=== PATIENT | male | born 1945 | race Caucasian/White ===

== ENCOUNTER 2022-03-13 13:45 | Observation (INO) | payer OTHER ==
--- OUTSIDE RECORDS SUMMARY | 2022-03-13 13:47 | XMS REPORT | Continuity of Care Document ---
:1945 Author Organization [facility] t Address [address] [place] [address] [address]. [address] [place] [address] Care Team Providers Name Role Phone Tootie Anderson Attending Clinician Unavailable Tootie Anderson Admitting Clinician Unavailable Payers Payer Name Policy Type Policy Number Effective Date Expiration Date S ource Problems This patient has no known problems. Allergies, Adverse Reactions, Alerts Allergy Allergy Status Severity Reaction(s) Onset Inactive Treating Comm ents Source Name Type Date Date Clinician gluten FA Active NE NO ENERGY [facility] 02-07 [place] 00:00: [facility] No Known DA Active [facility] 02-07 [place] [facility] gluten FA Active NE NO ENERGY [facility] 02-06 [place] 00:00: [facility] gluten FA Active NE NO ENERGY [facility] 1-17 [place] 00:00: [facility]ope 00 [facility] Medications This patient has no known medications. Procedures This patient has no known procedures. Encounters Start End Encounter Admission Attending Care Care Encounter Source Date/Time Date/Time Type Type Clinicians Facility Department ID 2022-02-07 2022-02-07 Outpatient EL Justin, [facility] [id number] [facility] 12:28:00 12:28:00 Anais [id number] [place] [facility] 2022-02-07 2022-02-07 Outpatient EL Justin, [facility] [id number] [facility] 12:28:00 12:28:00 Anais 97 [place] [facility] Results Test Description Test Time Test Comments Results Result [facility] e Comments - XR FLUORO FOR 2022-02-07 SPINE INJ 17:18:00 [facility] 1945 Sex: M Patient Name: TUNG AU Unit No: [id number] EXAMS: CPT CODE: [id number] XR FLUORO FOR SPINE INJ 34074 LUMBAR EPIRADICULAR INJECTION REFERRAL PHYSICIAN: Dr. Martinez PREOPERATIVE DIAGNOSIS: Lumbar Radiculitis POSTOPERATIVE DIAGNOSIS: Lumbar radiculitis PROCEDURES PERFORMED: Fluoroscopically guided needle localization of the bilateral L4 and bilateral S1 spinal nerves with transforaminal epidurograms and epidural injection of local anesthetic and steroid. FINDINGS: Good flow of dye through the right L5 and both S1 neuroforamen. However there is severe bony osteophytic outcropping at the left L5 neuroforamen preventing proper needle placement here. A paravertebral vertebral injection was carried out unfortunately good flow of dye through the neuroforamen here was not seen. Preinjection VAS 7/10. Postinjection VAS 3/10 (low back pain remain). Steroid response pending follow-up. ESTIMATED BLOOD LOSS: Minimal ANESTHESIA: TIVA COMPLICATIONS: None DETAILS OF PROCEDURE: After obtaining stable vital signs, informed consent and IV access, with no contraindications, the patient was taken to the operating room and placed in a prone position with all extremities padded and appropriate monitors placed. The patient was sterilely prepped and draped over the lumbosacral spine. Using fluoroscopic visualization the insertion sites were marked for paravertebral approaches and using standard technique, a 22 gauge needle was advanced to the base of each pedicle without paresthesias. Isovue-300 contrast 0.2 mL of was injected incrementally with frequent negative aspirations to produce each epidurogram. There were no signs of intravascular or intrathecal uptake. Bupivicaine 0.75% 0.25 mL with lidocaine 4% 0.25 mL and Decadron 5 mg was then incrementally injected with frequent negative aspirations and again there were no signs of intravascular or intrathecal uptake. The needles were removed and the patient was taken to the PACU in good condition. Image: Image 1 Image: Image 2 Image: Image 3 at 1718 Reported and signed by: ANAIS ANDERSON MD [place] [facility] NAME: TUNG AU [address] [facility] PHYS: Anais Gamez MD [place] [address] : 1945 AGE: 76 SEX: M LOC: JustinRITIKA PHONE #: [phone] EXAM DATE: 02/07/2022 [place]: [facility] [place] #: [phone] RAD #: D/C DT PAGE 1 Signed Report (CONTINUED) Patient Name: TUNG AU Unit No: [id number] EXAMS: CPT CODE: [id number] XR FLUORO FOR SPINE INJ [id number] <Continued> CC: Anais Anderson MD Technologist: EPIFANIO DYE RT(R) Transcribed D/ (7051) [email or web address] [facility] NAME: TUNG AU [address] [facility] PHYS: Anais Gamez MD [place], [place] [address] : 1945 AGE: 76 SEX: M LOC: JustinRITIKA PHONE #: [phone] EXAM DATE: 02/07/2022 STATUS: [facility] [place] #: [phone] RAD #: D/C DT PAGE 2 Signed Report Patient Name: TUNG AU Unit No: [id number] EXAMS: CPT CODE: [id number] XR FLUORO FOR SPINE INJ [id number] <Continued> Orig Print D/T: S: 02/07/2022 (1358) [facility] NAME: TUNG AU [address] [facility] PHYS: Anais Gamez MD [place], [place] [address] : 1945 AGE: 76 SEX: M LOC: ROSMERY PHONE #: [phone] EXAM DATE: 02/07/2022 [place]US: [facility] [place] #: [phone] RAD #: D/C DT PAGE 3 Signed Report
--- NOTE | 2022-03-13 16:11 | RAD REPORT ---
EXAM DESCRIPTION: RAD - Chest Single View - 03/13/2022 3:57 pm CLINICAL HISTORY: SOB COMPARISON: No comparisons FINDINGS: Lines: None. Lungs: No evidence of edema or pneumonia. Pleural: No significant pleural effusions or pneumothorax. Cardiac: The heart size is within normal limits. Bones: No acute fractures. Sternotomy. Other: IMPRESSION: No acute cardiopulmonary disease.
[2022-03-13 16:48] LABS: Protime INR 0.92
[2022-03-13 17:05] LABS: Absolute Lymphocytes (CBC) 0.9 K/uL (0.7-4.9); Albumin 3.7 g/dL (3.4-5.0); Bilirubin Direct 0.2 mg/dL (0-0.2); Bilirubin Total 0.7 mg/dL (0.2-1.0); Hematocrit 34.8 % (39.6-49.0); Lymphocytes % 15.4 % (15.3-44.8); Magnesium 2.3 mg/dL (1.8-2.4); Potassium 3.5 mmol/L (3.5-5.1); RBC Red Blood Cell Count 4.01 M/uL (4.33-5.43); Troponin High Sensitivity 12.1 pg/mL (<58.9)
--- NOTE | 2022-03-13 18:07 | EDPHYS ---
Physician Documentation [facility] Name: Justino Cody Age: 76 yrs Sex: Male : 1945 Arrival Date: 03/13/2022 Time: 13:47 Bed 19 Private MD: ED Physician Jn Simmons HPI: 03/13 14:26 This 76 yrs old Male presents to ER via Ambulatory with complaints of Shortness Of pm1 Breath, fatigue. 14:26 The patient has shortness of breath with light activity, Walking 10 to 20 feet. Onset: pm1 The symptoms/episode began/occurred Present for 6 weeks but worse the past 3 days. Call contacted his PCP and a scheduled a stress test for June. The patient's shortness of breath is aggravated by light activity, walking, is alleviated by rest. Associated signs and symptoms: Pertinent negatives: chest pain, non-productive cough, productive cough, fever. Severity of symptoms: in the emergency department the symptoms are worse Pain is currently a 0 / 10. 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 The patient has not recently seen a physician. Historical: - Allergies: 14:08 No Known Allergies; ld1 - PMHx: 14:08 Hypertensive disorder; Hypercholesterolemia; ld1 - PSHx: 14:08 Double bypass; ld1 - Immunization history:: Adult Immunizations up to date, Client reports receiving the 2nd dose of the Covid vaccine. - Social history:: Smoking status: Patient denies any tobacco usage or history of. Patient/guardian denies using alcohol. ROS: 14:26 Constitutional: Negative for fever, chills, and weight loss. pm1 14:26 Cardiovascular: Negative for chest pain, palpitations, and edema. 14:26 Abdomen/GI: Negative for abdominal pain, nausea, vomiting, diarrhea, and constipation, Back: Negative for injury and pain, MS/Extremity: Negative for injury and deformity, Skin: Negative for injury, rash, and discoloration, Neuro: Negative for headache, weakness, numbness, tingling, and seizure. 14:26 Respiratory: Positive for shortness of breath, on exertion. 14:26 All other systems are negative. Exam: 14:26 Constitutional: This is a well developed, well nourished patient who is awake, alert, pm1 and in no acute distress. Head/Face: Normocephalic, atraumatic. 14:26 Back: No spinal tenderness. No costovertebral tenderness. Full range of motion. Skin: Warm, dry with normal turgor. Normal color with no rashes, no lesions, and no evidence of cellulitis. MS/ Extremity: Pulses equal, no cyanosis. Neurovascular intact. Full, normal range of motion. 14:26 Cardiovascular: Exam negative for acute changes, Rate: normal, Rhythm: regular, Pulses: no pulse deficits are appreciated, Heart sounds: normal, Edema: is not appreciated. 14:26 Respiratory: Exam negative for acute changes, respiratory distress, shortness of breath, Breath sounds: are clear throughout. 14:26 Neuro: Exam negative for acute changes, Orientation: is normal, Mentation: is normal, Motor: is normal, moves all fours. Vital Signs: 14:09 BP 142 / 61; Pulse 64; Resp 18; Temp 98.6; Pulse Ox 98% on R/A; Weight 87.09 kg; Height ld1 5 ft. 7 in. (170.18 cm); Pain 0/10; 17:11 BP 147 / 63; Pulse 59; Resp 19; Pulse Ox 100% on R/A; tw2 17:50 BP 154 / 64; Pulse 52; Resp 17; Pulse Ox 100% on R/A; tw2 19:05 BP 162 / 58; Pulse 57; Resp 16; Pulse Ox 100% on R/A; tw2 19:36 BP 163 / 63; Pulse 52; Resp 18; Temp 98.6; Pulse Ox 100% on R/A; Pain 0/10; gustavo 22:03 BP 136 / 82; Pulse 63; Resp 16; Temp 98.6; Pulse Ox 100% on R/A; gustavo 14:09 Body Mass Index 30.07 (87.09 kg, 170.18 cm) ld1 MDM: 14:32 Patient medically screened. pm1 18:06 Data reviewed: vital signs. Data interpreted: Pulse oximetry: on room air is 100 %. pm1 Interpretation: normal. Counseling: I had a detailed discussion with the patient and/or guardian regarding: the historical points, exam findings, and any diagnostic results supporting the discharge/admit diagnosis, lab results, radiology results, the need for further work-up and treatment in the hospital. 06/01 14:17 Order name: Basic Metabolic Panel; Complete Time: 17:08 pm1 03/13 14:17 Order name: CBC with Diff; Complete Time: 17:08 pm1 03/13 14:17 Order name: LFT's; Complete Time: 17:08 pm1 03/13 14:17 Order name: Magnesium; Complete Time: 17:08 pm1 03/13 14:17 Order name: NT PRO-BNP; Complete Time: 17:08 pm1 03/13 14:17 Order name: PT-INR; Complete Time: 16:56 pm1 03/13 14:17 Order name: Troponin HS; Complete Time: 17:08 pm1 03/13 14:17 Order name: XRAY Chest (1 view); Complete Time: 16:20 pm1 03/13 14:17 Order name: EKG; Complete Time: 14:18 pm1 03/13 14:17 Order name: Cardiac monitoring; Complete Time: 16:56 pm1 03/13 14:17 Order name: EKG - Nurse/Tech; Complete Time: 17:09 pm1 03/13 14:17 Order name: IV Saline Lock; Complete Time: 16:57 pm1 03/13 20:14 Order name: COVID-19 SARS RT PCR (Document "Date of Onset" if Symptomatic) gustavo 03/13 21:28 Order name: SARS-COV-2 RT PCR; Complete Time: 21:31 EDMS 03/13 14:17 Order name: Labs collected and sent; Complete Time: 16:57 pm1 03/13 14:17 Order name: O2 Per Protocol; Complete Time: 16:56 pm1 03/13 14:17 Order name: O2 Sat Monitoring; Complete Time: 16:57 pm1 Administered Medications: No medications were administered Disposition: 18:51 Co-signature as Attending Physician, Jn Simmons MD I agree with the assessment and kdr plan of care. Disposition Summary: 03/13/22 18:07 Hospitalization Ordered Hospitalization Status: Observation pm1 Provider: Neela Chan pm1 Location: Telemetry/MedSurg (observation) pm1 Condition: Stable pm1 Problem: new pm1 Symptoms: have improved pm1 Bed/Room Type: Standard pm1 Room Assignment: 412(03/13/22 21:32) cg Diagnosis - Shortness of breath pm1 Forms: - Medication Reconciliation Form pm1 - SBAR form pm1 Signatures: Dispatcher [employer] EDMS Jn Simmons MD MD kdr Garcia, Cindy, RN RN cg Keorn Norris NP ARBOREAL SCIENTIST pm1 Susan Zamora RN RN ld1 Corrections: (The following items were deleted from the chart) 21:32 18:07 pm1 cg
--- NOTE | 2022-03-13 18:07 | ER ---
Nurse's Notes [facility] Name: Justino Cody Age: 76 yrs Sex: Male : 1945 Arrival Date: 03/13/2022 Time: 13:47 Bed 19 Private MD: Diagnosis: Shortness of breath Presentation: 03/13 14:09 Chief complaint: Patient states: SOB/Fatigue over the past two months. Upon arrival to 1 ER SpO2 97% RA. Coronavirus screen: At this time, the client does not indicate any symptoms associated with coronavirus-19. Ebola Screen: No symptoms or risks identified at this time. Initial Sepsis Screen: Does the patient meet any 2 criteria? No. Patient's initial sepsis screen is negative. Does the patient have a suspected source of infection? No. Patient's initial sepsis screen is negative. Risk Assessment: Do you want to hurt yourself or someone else? Patient reports no desire to harm self or others. Onset of symptoms was March 13, 2022. 14:09 Method Of Arrival: Ambulatory ld1 14:09 Acuity: SABINO 3 ld1 Triage Assessment: 14:08 General: Appears in no apparent distress. comfortable, Behavior is calm, cooperative, ld1 appropriate for age. Pain: Denies pain. EENT: No signs and/or symptoms were reported regarding the EENT system. Neuro: Level of Consciousness is awake, alert, obeys commands, Oriented to person, place, time, situation. Cardiovascular: Capillary refill < 3 seconds Patient's skin is warm and dry. Respiratory: Reports shortness of breath on exertion Airway is patent Respiratory effort is even, unlabored, Onset: The symptoms/episode began/occurred gradually, the patient has mild shortness of breath. Historical: - Allergies: 14:08 No Known Allergies; ld1 - PMHx: 14:08 Hypertensive disorder; Hypercholesterolemia; ld1 - PSHx: 14:08 Double bypass; ld1 - Immunization history:: Adult Immunizations up to date, Client reports receiving the 2nd dose of the Covid vaccine. - Social history:: Smoking status: Patient denies any tobacco usage or history of. Patient/guardian denies using alcohol. Screenin:38 Abuse screen: Denies threats or abuse. Nutritional screening: No deficits noted. tw2 Tuberculosis screening: No symptoms or risk factors identified. Fall Risk None identified. Assessment: 17:09 General: Appears in no apparent distress. well groomed, Behavior is calm, cooperative, tw2 appropriate for age. Pain: Denies pain. Neuro: Level of Consciousness is awake, alert, obeys commands, Oriented to person, place, time, situation. Cardiovascular: Rhythm is regular. Respiratory: Reports shortness of breath Airway is patent Respiratory effort is even, unlabored, Respiratory pattern is. 17:13 Reassessment: provider at bedside at this time. tw2 17:50 Reassessment: Patient appears in no apparent distress at this time. No changes from tw2 previously documented assessment. Patient and/or family updated on plan of care and expected duration. Pain level reassessed. Patient is alert, oriented x 3, equal unlabored respirations, skin warm/dry/pink. 19:06 Reassessment: Patient appears in no apparent distress at this time. No changes from tw2 previously documented assessment. Patient and/or family updated on plan of care and expected duration. Pain level reassessed. Patient is alert, oriented x 3, equal unlabored respirations, skin warm/dry/pink. 19:37 Reassessment: Patient appears in no apparent distress at this time. No changes from gustavo previously documented assessment. I recv'd report on the pt in room #19. He is to be admitted. The covid swab was done and an order will be placed. The provider was informed. The pt is at 100% on RA. The pt is awaiting a bed assignment. I told him if we are unable to get a room assignment, I will get him a "hospital bed" in his room, for comfort. 19:42 Reassessment: The hospitalist is at bedside speaking with the pt. gustavo 21:38 Reassessment: I called registration and they are at bedside. The pt has been "flipped" gustavo in the system. I am currently on hold, as the pt has been assigned room 412. The SBAR has been printed and the pt will be taken up via wc. 21:40 Respiratory: Breath sounds are clear. gustavo 22:02 Reassessment: I called report to 1432, as I needed to assist a pt and could no longer gustavo "hold", when I called earlier. The nurse called me back, but I was still busy getting another pt into bed. The pt will be taken up via wc, by the tech. 22:31 Reassessment: I took the pt up to his room and he ambulated with a steady, independent gustavo gait to the bathroom and then to the bed. Vital Signs: 14:09 BP 142 / 61; Pulse 64; Resp 18; Temp 98.6; Pulse Ox 98% on R/A; Weight 87.09 kg; Height ld1 5 ft. 7 in. (170.18 cm); Pain 0/10; 17:11 BP 147 / 63; Pulse 59; Resp 19; Pulse Ox 100% on R/A; tw2 17:50 BP 154 / 64; Pulse 52; Resp 17; Pulse Ox 100% on R/A; tw2 19:05 BP 162 / 58; Pulse 57; Resp 16; Pulse Ox 100% on R/A; tw2 19:36 BP 163 / 63; Pulse 52; Resp 18; Temp 98.6; Pulse Ox 100% on R/A; Pain 0/10; gustavo 22:03 BP 136 / 82; Pulse 63; Resp 16; Temp 98.6; Pulse Ox 100% on R/A; gustavo 14:09 Body Mass Index 30.07 (87.09 kg, 170.18 cm) ld1 ED Course: 13:47 Patient arrived in ED. as 14:08 Arm band placed on right wrist. ld1 14:10 Triage completed. ld1 14:10 Keron Norris NP is PHCP. pm1 14:10 Jn Simmons MD is Attending Physician. pm1 15:59 XRAY Chest (1 view) In Process Unspecified. EDMS 16:38 She Adler RN is Primary Nurse. tw2 16:38 Call light in reach. Side rails up X 1. Adult w/ patient. Client placed on continuous tw2 cardiac and pulse oximetry monitoring. NIBP monitoring applied. compliance monitor on. Pulse ox on. 16:38 Inserted saline lock: 22 gauge in right antecubital area, using aseptic technique. tw2 Blood collected. 18:07 Neela hCan PA is Hospitalizing Provider. pm1 19:06 Report given to LYNN Brandt. tw2 19:19 Primary Nurse role handed off by She Adler RN mw2 19:36 Karly Winchester RN is Primary Nurse. gustavo 21:31 COVID-19 SARS RT PCR (Document "Date of Onset" if Symptomatic) Sent. tw5 21:39 No provider procedures requiring assistance completed. gustavo 22:01 Patient admitted, IV remains in place. gustavo Administered Medications: No medications were administered Medication: 21:39 VIS not applicable for this client. gustavo Outcome: 18:07 Decision to Hospitalize by Provider. pm1 21:39 Condition: stable gustavo 22:00 Admitted to ER Hold. Please see [facility] for further documentation. gustavo 22:34 Patient left the ED. gustavo Signatures: Dispatcher [employer] EDMS Augusta Aguero Patrick, LUCI ARCHEOLOGIST CLASSICAL pm1 She Adler RN RN tw2 Gabriel Greenwood mw2 Susan Zamora RN RN ld1 Grace Estrada tw5 Karly Winchester, RN RN gustavo
--- NOTE | 2022-03-13 19:55 | P.HP ---
Certification for Inpatient Patient admitted to: Observation With expected LOS: <2 Midnights Patient will require the following post-hospital care: None Practitioner: I am a practitioner with admitting privileges, knowledge of patient current condition, hospital course, and medical plan of care. Services: Services provided to patient in accordance with Admission requirements found in Title 42 Section 412.3 of the Code of Federal Regulations Patient History Date of Service: 03/13/22 Reason for admission: HASSAN, Fatigue History of Present Illness: Patient is a 76-year-old male past medical history of hypertension and hyperlipidemia who presented to the ED with complaints of dyspnea on exertion and fatigue for 2 months now. Patient states that he cannot walk more than 10 to 20 feet without becoming short of breath and has been feeling fatigued. He tried to make an appointment with a ticket sorter, but could not get an appointment for 3 months. Patient saturating appropriately on RA. Labs in the ED significant for creatinine 1.34, BUN 27. BNP and troponin WNL. Chest x-ray negative. EKG showed sinus bradycardia. Patient states that he had a cardiac work-up about 7 years ago which resulted in him getting a double bypass. He has not had a echo or stress test since then. ED provider wishes to admit patient for observation. Allergies No Known Allergies Allergy (Unverified 03/13/22 22:24) Home medications list reviewed: Yes - Past Medical/Surgical History Diabetic: No -: Hypertension -: Hyperlipidemia -: Double Bypass Psychosocial/ Personal History: Patient lives at home with his . - Family History Mother -: Diabetes Father -: Heart disease - Social History Smoking Status: Never smoker Alcohol use: No CD- Drugs: No Caffeine use: Yes Place of Residence: Home Review of Systems General: Other (Fatigue) Respiratory: SOB with Excertion Physical Examination - Physical Exam General: Alert, In no apparent distress HEENT: Atraumatic, PERRLA, EOMI, Sclerae nonicteric Neck: Supple, 2+ carotid pulse no bruit, No LAD, Without JVD or thyroid abnormality Respiratory: Clear to auscultation bilaterally, Normal air movement Cardiovascular: Regular rate/rhythm, Normal S1 S2 Gastrointestinal: Normal bowel sounds, No tenderness Musculoskeletal: No contractures, No tenderness Integumentary: No rashes, No breakdown Neurological: Normal speech, Normal strength at 5/5 x4 extr, Normal affect - Studies Laboratory Data (last 24 hrs) 03/13/22 16:35: PT 10.1, INR 0.92 03/13/22 16:35: WBC 6.1, Hgb 11.9 L, Hct 34.8 L, Plt Count 182 03/13/22 16:35: Sodium 143, Potassium 3.5, BUN 27 H, Creatinine 1.34 H, Glucose 91, Magnesium 2.3, Total Bilirubin 0.7, AST 29, ALT 40, Alkaline Phosphatase 65 Assessment and Plan - Problems (Diagnosis) (1) Dyspnea on exertion Current Visit: Yes Status: Acute (2) Fatigue Current Visit: Yes Status: Acute Qualifiers: Fatigue type: unspecified Qualified Code(s): R53.83 - Other fatigue (3) Hypertension Current Visit: Yes Status: Chronic Qualifiers: Hypertension type: primary hypertension Qualified Code(s): I10 - Essential (primary) hypertension (4) Hyperlipemia Current Visit: No Status: Chronic Qualifiers: Hyperlipidemia type: mixed hyperlipidemia Qualified Code(s): E78.2 - Mixed hyperlipidemia - Plan -Cardiology consulted and echo ordered -Continue home antihypertensives -Hydralazine PRN BP spikes -Oxygen as needed -BUN and Cr slightly increased. 1L fluid ordered. -Lovenox for VTE PPx -Full Code Discharge Plan: Home Plan to discharge in: 24 Hours - Advance Directives Does patient have a Living Will: Yes Does patient have a Durable POA for Healthcare: Yes - Code Status/Comfort Care Code Status Assessed: Yes (Full) Critical Care: No Time Spent Managing Pts Care (In Minutes): 50
[2022-03-13] MEDS ORDERED: ACETAMINOPHEN 500 MG TAB PO PRN (22:24)
[2022-03-13] MEDS ORDERED: ONDANSETRON 4 MG/2 ML VIAL IV PRN (22:24)
[2022-03-13] MEDS ORDERED: NA CHLORIDE 0.9% 1,000 ML IV SCH (22:24)
[2022-03-14 00:32] VITALS: BMI 30.3
[2022-03-14 04:02] LABS: Hematocrit 34.5 % (39.6-49.0); Lymphocytes % 15.9 % (15.3-44.8); RBC Red Blood Cell Count 3.95 M/uL (4.33-5.43)
[2022-03-14 04:20] LABS: Urine Appearance Clear (Clear); Urine Bilirubin Negative (Negative); Urine Blood Negative (Negative); Urine Color Yellow (Yellow); Urine Glucose Negative (Negative); Urine Protein Negative (Negative); Urine Specific Gravity 1.025 (1.005-1.030); Urine Urobilinogen 0.2 mg/dL (0.2-1.0); Urine pH 5.5 (5.0-7.0)
[2022-03-14 04:20] LABS: Albumin 3.3 g/dL (3.4-5.0); Bilirubin Total 0.9 mg/dL (0.2-1.0); Magnesium 2.2 mg/dL (1.8-2.4); Phosphorus 3.1 mg/dL (2.5-4.9); Potassium 3.5 mmol/L (3.5-5.1); Protein, Total 6.1 g/dL (6.4-8.2)
[2022-03-14 04:30] LABS: Thyroid Stimulating Hormone 4.9 uIU/mL (0.360-3.740)
[2022-03-14 04:36] LABS: Urine Microscopic Reflex NO UMIC
[2022-03-14] MEDS ORDERED: ENOXAPARIN 40 MG/0.4 ML SQ SCH (09:00)
--- NOTE | 2022-03-14 13:46 | EKG ---
Test Date: 2022-03-13 Test Time: 16:59:36 Instructional Design Technologist: NICOLASA MEASUREMENT RESULTS: Intervals: Rate: 54 ME: 190 QRSD: 102 QT: 452 QTc: 428 [place]: P: 58 ME: 190 QRS: 11 T: 31 INTERPRETIVE STATEMENTS: Sinus bradycardia Otherwise normal ECG Compared to ECG 12/05/1995 09:49:00 Sinus rhythm no longer present Left ventricular hypertrophy no longer present Intraventricular conduction delay no longer present Electronically Signed On 03-14-22 13:45:08 CDT by Jose F Downing
[2022-03-14 17:41] VITALS: BP 161/66; TEMP 98
[2022-03-14 20:57] VITALS: O2SAT 96
--- NOTE | 2022-03-15 07:11 | ECHO ---
HEIGHT: 5 ft 7 in WEIGHT: 193 lb 11.2 oz DATE OF STUDY: 03/14/[address]: Neela Chan 2-DIMENSIONAL: YES M.MODE: YES DOPPLER: YES COLOR FLOW: YES TDS: NO PORTABLE: YES DEFINITY: NO BUBBLE STUDY: NO DIAGNOSIS: DYSPNEA ON EXERTION CARDIAC HISTORY: CATHERIZATION: SURGERY: PROSTHETIC VALVE: PACEMAKER: MEASUREMENTS (cm) DIASTOLIC (NORMALS) SYSTOLIC (NORMALS) IVSd 0.8 (0.6-1.2) LA Diam 3.5 (1.9-4.0) LVEF 60-65% LVIDd 5.8 (3.5-5.7) LVIDs 3.1 (2.0-3.5) %FS 46% LVPWd 1.2 (0.6-1.2) Ao Diam 3.5 (2.0-3.7) 2 DIMENSIONAL ASSESSMENT: RIGHT ATRIUM: NORMAL LEFT ATRIUM: NORMAL RIGHT VENTRICLE: NORMAL LEFT VENTRICLE: NORMAL TRICUSPID VALVE: MODERATE TRICUSPID REGURGITATION MITRAL VALVE: MILD MITRAL REGURGITATION PULMONIC VALVE: MILD PULMONIC INSUFFICIENCY AORTIC VALVE: MODERATE AORTIC INSUFFICIENCY PERICARDIAL EFFUSION: NONE AORTIC ROOT: NORMAL LEFT VENTRICULAR WALL MOTION: NORMAL. DOPPLER/COLOR FLOW: SEE BELOW. COMMENTS: NORMAL LEFT VENTRCIULAR EJECTION FRACTION 60-65% WITH NORMAL WALL MOTION. MILD PULMONIC INSUFFICIENCY, MILD MITRAL REGURGITATION. MODERATE TRICUSPID REGURGITATION. MILD AORTIC STENOSIS AND MODERATE AORTIC INSUFFIECIENCY. TECHNOLOGIST: JUDITH TOPETE
--- NOTE | 2022-03-17 16:20 | CON ---
Date of Consultation: 03/14/2022 Reason For Consultation: Dyspnea on exertion and fatigue. History Of Present Illness: Mr. Cody is a 76-year-old white male, normally followed at the [facility], although has not been able to contact them and follow up with him. He has a history of hyperten rico, dyslipidemia. He has had CABG before. Apparently, over the last 2 months, he has been experie ncing unusual fatigue and unusual shortness of breath with exertion with some mild chest pain, but no nausea, vomiting, diaphoresis, PND, orthopnea, pedal edema, palpitations, or syncope. Past Medical History: As stated above. Allergies: NONE. Medications: At home are none. Review of Systems: Negative. Social History: Negative. Family History: Negative she. Physical Examination: Vital Signs: Stable, afebrile. HEENT: Negative. Neck: Supple without any bruit, lymphadenopathy, JVD, or thyromegaly. Chest: Clear to auscultation and percussion. Cardiac: Revealed a regular rhythm and rate. No murmurs, gallops, or rubs. Abdomen: Benign. Extremities: Revealed no clubbing, cyanosis, or edema. Diagnostic Data: All normal. Impression And Plan: This is a patient who has high blood pressure, dyslipidemia, coronary artery by pass graft. He is experiencing new onset congestive heart failure, symptoms, and maybe co ronary artery disease, worsening. Echocardiogram which was done revealed an ejection fraction of 60% to 65% with some moderate aortic insufficiency, mild mitral regurgitation as well as mild aortic jaky nosis. I think he needs to have an outpatient MPI done in the near future. He really should be on a spirin, low-dose beta-ritu, and statin. He can go home whenever it is okay with Dr. Ramsay. We tosha l see him in the office in the very near future. MEAGHAN/JOHN Voice ID: [id number] Report ID: [id number]
== END 2022-03-14 20:45 | disposition home or self-care (01) ==
LOC: ER 13:45 → ERHOLD 19:55 → 4TH 21:34
PROVIDERS: ADMIT Hospitalist; ATTEND Hospitalist
DX: I11.0 Hypertensive heart disease with heart failure (principal); I50.9 Heart failure, unspecified; I34.0 Nonrheumatic mitral (valve) insufficiency; I35.2 Nonrheumatic aortic (valve) stenosis with insufficiency; R53.83 Other fatigue; E78.2 Mixed hyperlipidemia; Z95.1 Presence of aortocoronary bypass graft; Z20.822 Contact with and (suspected) exposure to COVID-19; Z82.49 Family history of ischemic heart disease and other diseases of the circulatory system; Z83.3 Family history of diabetes mellitus
CPT/HCPCS: 93005; 93306; 85025 ×2; 80048; 36415; 83735 ×2; 84100; 85610; 80061; 80076; 84443; 81003; 84484; 84439; 80053; 83880; 71045; 99285; U0003; J1650; J7030 ×2; G0378 ×2

== ENCOUNTER 2023-07-20 10:26 | Inpatient (IN) | payer OTHER ==
--- OUTSIDE RECORDS SUMMARY | 2023-07-20 10:32 | XMS REPORT | Continuity of Care Document ---
:1945 Author Organization [facility] t Address [address] [place] [id number] Care Team Providers Name Role Phone Suzanna Attending Clinician Unavailable RICHARD Attending Clinician Unavailable Anais Anderson Attending Clinician Unavailable Suzanna Admitting Clinician Unavailable RICHARD Admitting Clinician Unavailable Anais Anderson Admitting Clinician Unavailable Payers Payer Name Policy Type Policy Number Effective Date Expiration Date S margret [employer] (MEDICARE [id number] 2022 REPLACEMENT PPO) 00:00:00 MEDICARE B-[place]: [id number] [employer] (MEDICARE [id number] SUPPLEMENT) [employer] (INDEMNITY) [id number] 2002 00:00:00 Problems Condition Condition Condition Status Onset Resolution Last Treating Co mments Source Name Details Category Date Date Treatment Clinician Date 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 4-28 Or thope s s 00:00: dic 00 Sports Medicin e Degenerati Degenerati Problem Active A zalea on of on of 3-10 Orthope lumbar Lumbar 00:00: dic interverte Interverte 00 Sp orts bral disc bral Disc Medi michelle e Arthropath Arthropath Problem Active A zalea y of y of 5-13 Orthope lumbar Lumbar 00:00: dic facet Facet 00 Sports joint Joint Medicin e Lumbosacra Lumbosacra Problem Active A zalea l l 5-13 Orthope spondylosi Spondylosi 00:00: di c s without s without 00 Spor ts myelopathy Myelopathy Me dicin e Lumbar Lumbar Problem Active Lucila radiculopa Radiculopa 4-13 Or thope thy thy 00:00: dic 00 Sports Medicin e Sleep Sleep Problem Active 2012-10 Lucila apnea Apnea 2- Orthope 00:00: dic 00 Sports Medicin e Rupture of Rupture of Problem Active 2012-10 A zalea tendon of Tendon of 11-14 Orth ope biceps Biceps 00:00: dic 00 Sports Medicin e Allergies, Adverse Reactions, Alerts Allergy Allergy Status Severity Reaction(s) Onset Inactive Treating Comm ents Source Name Type Date Date Clinician gluten FA Active PR NO ENERGY [facility]- [place] 00:[facility]: [facility] 00 dic [facility] No Known DA Active U [facility] Allergie 02-07 [place] [facility] 00:00: [facility] 00 dic [facility]osp[facility] gluten FA Active PR NO ENERGY [facility] 4-27 [place] 00:00: [facility] 00 dic Hospita l gluten FA Active PR NO ENERGY [facility] 1-17 [place] 00:00: [facility] 00 dic Hospita l Social History Smoking Status Start Date Stop Date Source Never Smoker [facility] Sports Medicine Medications Ordered Filled Start Stop Current Ordering Indication Dosage Frequency Signature Comments Components Source Medication Medication Date Date Medication? Clinician (SIG) Name Name hydrochloro hydrochloro 2012-10 No hydrochlor [facility]ila thiazide 25 thiazide 25 2-02 othiazide [facility] mg tablet mg tablet 00:00: 25 mg di c RX by other RX by other 00 tablet RX Beckie SMITH MD by other [place] hydrochloro hydrochloro 2012-10 No hydrochlor Lucila thiazide 25 thiazide 25 2-02 othiazide Orth[facility] mg tablet mg tablet 00:00: 25 mg di c RX by other RX by other 00 tablet RX Beckie SMITH MD by other [place] Adult Low Adult Low No 1 Q1D Adult Low [facility]ila Dose Dose Dose Orthope Aspirin 81 Aspirin 81 Aspirin 81 dic mg mg mg Sports tablet,johnathan tablet,johnathan tablet,del Medicin yed release yed release ayed e Take 1 Take 1 release tablet tablet Take 1 every day every day tablet by oral by oral every day route. route. by oral route. Aleve 220 Aleve 220 No 1capsul Q12H Aleve 220 Lucila mg capsule mg capsule e(s) mg capsule [facility] Take 1 Take 1 Take 1 dic capsule capsule capsule Sports every 12 every 12 every 12 Med icin hours by hours by hours by e oral route. oral route. oral route. furosemide furosemide No furosemide Lucila 20 mg 20 mg 20 mg [facility] tablet TAKE tablet TAKE tablet dic 1 TABLET BY 1 TABLET BY TAKE 1 Sports MOUTH EVERY MOUTH EVERY TABLET BY Medicin DAY DAY MOUTH e EVERY DAY hydroxychlo hydroxychlo No hydroxychl Lucila roquine 200 roquine 200 oroquine Orth[facility] mg tablet mg tablet 200 mg dic tablet Sports Medicin e ivermectin ivermectin No ivermectin Lucila 3 mg tablet 3 mg tablet 3 mg O rthope tablet dic Sports Medicin e omeprazole omeprazole No 1capsul Q1D omeprazole Lucila 20 mg 20 mg e(s) 20 mg Orth[facility] capsule,del capsule,del capsule,de dic ayed ayed layed Sports release release release Medici n Take 1 Take 1 Take 1 e capsule capsule capsule every day every day every day by oral by oral by oral route. route. route. potassium potassium No potassium Lucila chloride ER chloride ER chloride Orthope 10 mEq 10 mEq ER 10 mEq dic tablet,exte tablet,exte tablet,ext Sports nded nded ended Medicin release release release e TAKE 1 TAKE 1 TAKE 1 TABLET BY TABLET BY TABLET BY MOUTH EVERY MOUTH EVERY MOUTH DAY WITH DAY WITH EVERY DAY FOOD FOOD WITH FOOD simvastatin simvastatin No 1 Q1D simvastati Lucila 20 mg 20 mg n 20 mg Orth[facility] tablet Take tablet Take tablet dic 1 tablet 1 tablet Take 1 Sport s every day every day tablet Med icin by oral by oral every day e route. route. by oral route. Adult Low Adult Low No 1 Q1D Adult Low Lucila Dose Dose Dose Orthope Aspirin 81 Aspirin 81 Aspirin 81 dic mg mg mg Sports tablet,johnathan tablet,johnathan tablet,del Medicin yed release yed release ayed e Take 1 Take 1 release tablet tablet Take 1 every day every day tablet by oral by oral every day route. route. by oral route. Aleve 220 Aleve 220 No 1capsul Q12H Aleve 220 Lucila mg capsule mg capsule e(s) mg capsule [facility] Take 1 Take 1 Take 1 dic capsule capsule capsule Sports every 12 every 12 every 12 Med icin hours by hours by hours by e oral route. oral route. oral route. furosemide furosemide No furosemide Lucila 20 mg 20 mg 20 mg [facility] tablet TAKE tablet TAKE tablet dic 1 TABLET BY 1 TABLET BY TAKE 1 Sports MOUTH EVERY MOUTH EVERY TABLET BY Medicin DAY DAY MOUTH e EVERY DAY hydroxychlo hydroxychlo No hydroxychl Lucila roquine 200 roquine 200 oroquine Orthope mg tablet mg tablet 200 mg dic tablet Sports Medicin e ivermectin ivermectin No ivermectin Lucila 3 mg tablet 3 mg tablet 3 mg O rthope tablet dic Sports Medicin e omeprazole omeprazole No 1capsul Q1D omeprazole Lucila 20 mg 20 mg e(s) 20 mg Orthope capsule,del capsule,del capsule,de dic ayed ayed layed Sports release release release Medici n Take 1 Take 1 Take 1 e capsule capsule capsule every day every day every day by oral by oral by oral route. route. route. potassium potassium No potassium Lucila chloride ER chloride ER chloride Orthope 10 mEq 10 mEq ER 10 mEq dic tablet,exte tablet,exte tablet,ext Sports nded nded ended Medicin release release release e TAKE 1 TAKE 1 TAKE 1 TABLET BY TABLET BY TABLET BY MOUTH EVERY MOUTH EVERY MOUTH DAY WITH DAY WITH EVERY DAY FOOD FOOD WITH FOOD simvastatin simvastatin No 1 Q1D simvastati Lucila 20 mg 20 mg n 20 mg [facility] tablet Take tablet Take tablet dic 1 tablet 1 tablet Take 1 Sport s every day every day tablet Med icin by oral by oral every day e route. route. by oral route. Vital Signs Vital Name Observation Time Observation Value Comments Source Height 2023-02-07 00:00:00 67 [in_i] [facility] BMI (Body Mass 2023-02-07 00:00:00 29.8 kg/m2 [facility] Index) Sports Medicine Body Weight 2023-02-07 00:00:00 190 [lb_av] [facility] Height 2022-12-20 00:00:00 67 [in_i] [facility] BMI (Body Mass 2022-12-20 00:00:00 29.8 kg/m2 [facility] Index) Sports Medicine Body Weight 2022-12-20 00:00:00 190 [lb_av] [facility] Procedures Procedure Date / Time Performing Clinician Source Performed SPECT, bone 2022-12-20 00:00:00 [facility]o ped[facility] Sports Medicine Epidural Steroid 2022-02-07 00:00:00 [facility] Injection, Lumbar Sports Medicin e Transforaminal (Surg) Plan of Care Planned Activity Planned Date Details Comments Source Instructions [facility] Sports Medicine Encounters Start End Encounter Admission Attending Care Care Encounter Source Date/Time Date/Time Type Type Clinicians Facility Department ID 2023-05-16 2023-05-16 Outpatient FOG_McCann_ AOSM AOSM [id number] Lucila 00:00:00 00:00:00 Sanam [id number] Orth ope dic Sports Medicin e 2023-02-21 2023-02-21 Outpatient FOG_McCann_ AOSM AOSM [id number] Lucila 00:00:00 00:00:00 Sanam [id number] Orth ope dic Sports Medicin e 2023-02-07 2023-02-07 Jailene Duval AOSM [place] - Ortho 2022 427 Lucila 00:00:00 00:00:00 Jillian Arrieta - Or faby ENGINE WIPER: [id number] [facility], [place] [address] , Ph. [phone] 2023-01-20 2023-01-20 Outpatient FOG_McCann_ AOSM AOSM [id number] Lucila 00:00:00 00:00:00 Sanam [id number] Orth ope dic Sports Medicin e 2023-01-20 2023-01-20 Outpatient FOG_McCann_ AOSM AOSM [id number] Lucila 00:00:00 00:00:00 Sanam [id number] Orth ope dic Sports Medicin e 2023-01-05 2023-01-05 Outpatient FOG_McCann_ AOSM AOSM [id number] Lucila 00:00:00 00:00:00 Sanam [id number] Orth ope dic Sports Medicin e 2022-12-20 2022-12-20 Outpatient FOG_McCann_ AOSM AOSM [id number] Lucila 00:00:00 00:00:00 Sanam [id number] Orth ope dic Sports Medicin e 2022-12-20 2022-12-20 Susanne AOSM [place] - Ortho [id number] Lucila 00:00:00 00:00:00 Manuel Connorse Jace anglin ENGINE WIPER: [id number] FOG[facility] [place] [place] [address] , Ph. [phone] 2022-12-17 2022-12-17 Outpatient FOG_McCann_ AOSM AOSM 221 [id number]- Lucila 00:00:00 00:00:00 Sanam [id number] Orth ope dic Sports Medicin e 2022-12-16 2022-12-16 Outpatient OLS_BECK_TI AOSM AOSM 221 [id number] Lucila 00:00:00 00:00:00 EDUARD [id number] Orthop e dic Sports Medicin e 2022-07-10 2022-07-10 Outpatient FOG_McCann_ AOSM AOSM [id number] Lucila 00:00:00 00:00:00 Sanam [id number] Orth ope dic Sports Medicin e 2022-06-26 2022-06-26 Outpatient FOG_McCann_ AOSM AOSM [id number] Lucila 00:00:00 00:00:00 Sanam [id number] Orth ope dic Sports Medicin e 2022-06-25 2022-06-25 Outpatient FOG_McCann_ AOSM AOSM [id number] Lucila 00:00:00 00:00:00 Sanam [id number] Orth ope dic Sports Medicin e 2022-02-07 2022-02-07 Outpatient EL Justin, HCATO PAIN [id number] [facility] 12:28:00 12:28:00 Anais 97 [place] [facility] Results Test Description Test Time Test Comments Results Result [facility] e Comments - XR FLUORO FOR 2022-02-07 SPINE INJ 17:18[facility]00 [facility] 1945 Sex: M Patient Name: TUNG AU Unit No: [id number] EXAMS: CPT CODE: [id number] XR FLUORO FOR SPINE INJ 08531 LUMBAR EPIRADICULAR INJECTION REFERRAL PHYSICIAN: Dr. Martinez [...] Reported and signed by: ANAIS ANDERSON MD [facility] NAME: TUNG AU [address] [facility] PHYS: Anais Gamez MD [place] [address] : 1945 AGE: 76 SEX: M LOC: JustinRITIKA PHONE #: [phone] EXAM DATE: 02/07/2022 STATUS: REG SDC FAX #: [phone] RAD #: D/C DT PAGE 1 Signed Report (CONTINUED) Patient Name: TUNG AU Unit No: [id number] EXAMS: CPT CODE: [id number] XR FLUORO FOR SPINE INJ 76633 (Continued) CC: Anais Anderson MD Technologist: EPIFANIO DYE RT(R) Transcribed D/ (1718) [email or web address] [facility] NAME: TUNG AU [address] [facility] PHYS: Anais Gamez MD [place] [address] : 1945 AGE: 76 SEX: M LOC: ROSMERY PHONE #: [phone] EXAM DATE: 02/07/2022 STATUS: REG SDC FAX #: [phone] RAD #: D/C DT PAGE 2 Signed Report Patient Name: TUNG AU Unit No: [id number] EXAMS: CPT CODE: [id number] XR FLUORO FOR SPINE INJ 42512 (Continued) Orig Print D/T: S: 02/07/2022 (1721) [facility] NAME: TUNG AU [address] [facility] PHYS: Anais Gamez MD [place] [address] : 1945 AGE: 76 SEX: M LOC: JustinRITIKA PHONE #: [phone] EXAM DATE: 02/07/2022 STATUS: REG SDC FAX #: [phone] RAD #: D/C DT PAGE 3 Signed Report
[2023-07-20 11:08] LABS: Absolute Lymphocytes (CBC) 1.5 K/uL (0.7-4.9); Hematocrit 42.6 % (39.6-49.0); Lymphocytes % 12.1 % (15.3-44.8); MCV 87.3 fL (80-100); MPV 8.2 fL (7.6-11.3); Platelets 153 thou/uL (152-406); RBC Red Blood Cell Count 4.89 M/uL (4.33-5.43)
[2023-07-20 11:28] LABS: Albumin 3.8 g/dL (3.4-5.0); Bilirubin Direct 0.3 mg/dL (0-0.2); Bilirubin Total 1.3 mg/dL (0.2-1.0); Potassium 3.5 mEq/L (3.5-5.1); Protein, Total 7.3 g/dL (6.4-8.2); Troponin High Sensitivity 13.5 pg/mL (<58.9)
--- NOTE | 2023-07-20 11:43 | RAD REPORT ---
EXAM DESCRIPTION: RAD - Chest Single View - 07/20/2023 11:35 am CLINICAL HISTORY: CHEST PAIN COMPARISON: <Comparisons> FINDINGS: Lines: None. Lungs: No evidence of edema or pneumonia. Pleural: No significant pleural effusions or pneumothorax. Cardiac: The heart size is within normal limits. Mediastinum: Within normal limits. Bones: No acute fractures. Sternotomy. Other: None IMPRESSION: No acute cardiopulmonary disease.
--- NOTE | 2023-07-20 12:36 | RAD REPORT ---
EXAM DESCRIPTION: CT - Chest For Pe Angio - 07/20/2023 12:27 pm CLINICAL HISTORY: CHEST PAIN COMPARISON: No comparisons TECHNIQUE: Dynamically enhanced axial 3 mm thick images of the chest were obtained during administra tion of <100> mL Isovue 370 IV contrast. Coronal and oblique reconstruction images were generated and reviewed. Exam utilizes a protocol for optimal evaluation of pulmonary arterial tree. Maximum intensity projections 3D imaging was utilized All CT scans are performed using dose optimization technique as appropriate and may include automated exposure control or mA/KV adjustment according to patient size. FINDINGS: Chest Wall: No suspicious thyroid nodules or pathologic lymphadenopathy. Lungs: No acute abnormality. Pleura: No significant effusions or pneumothorax. Mediastinum/kelby: No pathologic lymphadenopathy. Pulmonary arteries/Aorta: No filling defect identified. Ascending thoracic aortic aneurysm measuring 4.1 cm. Heart: No significant pericardial effusion. Mild cardiomegaly. Upper abdomen: Cholelithiasis.Gallbladder wall thickening is present. Bones: No acute abnormality. IMPRESSION: Negative for pulmonary embolism. No acute findings in the chest. Ascending thoracic aort ic aneurysm which can be followed with annual chest CT. Cholelithiasis and possible acute cholecystitis.
--- NOTE | 2023-07-20 13:03 | RAD REPORT ---
EXAM DESCRIPTION: CTAbdomen Pelvis W Contrast - 07/20/2023 12:32 pm CLINICAL HISTORY: ABD PAIN COMPARISON: No comparisons TECHNIQUE: CT of the abdomen and pelvis was performed. All CT scans are performed using dose optimization technique as appropriate and may include automated exposure control or mA/KV adjustment according to patient size. FINDINGS: Lower chest: No acute abnormality. Cardiomegaly. Liver: No acute abnormality or suspicious lesions. Biliary: Cholelithiasis with gallbladder wall thickening. Stomach: No significant focal abnormality. Duodenum: No significant focal abnormality. Pancreas: No significant abnormality. Spleen: No significant abnormality. Adrenal: No suspicious lesions. Kidney/ureter: No hydronephrosis. No renal calculi. Too small to characterize and/or benign appearing renal lesions are noted. Retroperitoneum: No retroperitoneal adenopathy. Vascular: No aneurysm. Atherosclerosis. Bowel: No significant focal abnormality. Diverticulosis without diverticulitis. Peritoneum: No ascites or free air. Small fat containing inguinal hernias. Tiny fat containing umbili denver hernia. Bladder: Grossly unremarkable. Reproductive: Mild prostatomegaly. Bones: No acute fracture. Sternotomy. Other: n/a IMPRESSION: Cholelithiasis with distended gallbladder and wall thickening that could indicate acute cholecystitis in the appropriate clinical setting. Correlate with LFTs.
--- NOTE | 2023-07-20 13:59 | RAD REPORT ---
EXAM DESCRIPTION: US - Abdomen Exam Limited - 07/20/2023 1:35 pm CLINICAL HISTORY: ABD PAIN COMPARISON: Abdomen Pelvis W Contrast dated 07/20/2023 FINDINGS: The gallbladder demonstrates shadowing gallstones Borderline gallbladder wall thickening m easuring 3 mm. No pericholecystic fluid. The common bile duct is within normal limits measuring 6 mm. No sonographic Acevedo sign reported by the retail seasonal specialist. The liver demonstrates no findings of intrahepatic biliary dilatation. IMPRESSION: Cholelithiasis with borderline gallbladder wall thickening. Common bile duct within norm al limits for patient's age. A sonographic Acevedo's sign was NOT reported. Therefore, the findings re main nonspecific and acute cholecystitis is neither confirmed nor excluded.
--- NOTE | 2023-07-20 14:20 | ER ---
Nurse's Notes [facility] Name: Justino Cody Age: 77 yrs Sex: Male : 1945 Arrival Date: 07/20/2023 Time: 10:26 Bed 18 Private MD: Diagnosis: Other cholelithiasis without obstruction;Acute cholecystitis Presentation: 07/20 10:40 Chief complaint: Chief complaint: Patient states: Mid CP that radiates into R chest ll1 since yesterday. States he had a fall 07/11 which left a bad bruise on his R hip. 10:40 Coronavirus screen: Client denies travel out of the [place] in the last 14 days. At this ll1 time, the client does not indicate any symptoms associated with coronavirus-19. Ebola Screen: Patient denies travel to an Ebola-affected area in the 21 days before illness onset. Initial Sepsis Screen: Does the patient meet any 2 criteria? No. Patient's initial sepsis screen is negative. Does the patient have a suspected source of infection? No. Patient's initial sepsis screen is negative. Risk Assessment: Do you want to hurt yourself or someone else? Patient reports no desire to harm self or others. Onset of symptoms was July 19, 2023. 10:40 Method Of Arrival: Ambulatory ll1 10:40 Acuity: SABINO 3 ll1 Historical: - Allergies: 10:40 Gluten Protein; ll1 - PMHx: 10:40 Hypercholesterolemia; Hypertensive disorder; ll1 - PSHx: 10:40 Double Bypass; ll1 - Immunization history:: Adult Immunizations up to date. - Social history:: Smoking status: Patient denies any tobacco usage or history of. Screenin:05 [facility] ED Fall Risk Assessment (Adult) History of falling in the last 3 months, ph including since admission Yes- single mechanical fall (1 pt) Confusion or Disorientation No (0 pts) Intoxicated or Sedated No (0 pts) Impaired Gait No (0 pts) Mobility Assist Device Used No (0 pt) Altered Elimination No (0 pt) Score/Fall Risk Level 0 - 2 = Low Risk Oriented to surroundings, Maintained a safe environment, Provided non-skid footwear, Hourly rounding (assess needs \T\ fall precautionary measures) done. Abuse screen: Denies threats or abuse. Denies injuries from another. Nutritional screening: On. Tuberculosis screening: No symptoms or risk factors identified. Assessment: 11:08 General: Appears in no apparent distress. comfortable, Behavior is calm, cooperative, ph appropriate for age. Pain: Complains of pain in chest. Pain:. Neuro: Level of Consciousness is awake, alert, obeys commands, Oriented to person, place, time, situation. Cardiovascular: Reports chest pain, Rhythm is sinus bradycardia. Respiratory: Airway is patent Respiratory effort is even, unlabored. 16:50 Reassessment: No changes from previously documented assessment. Patient and/or family ll1 updated on plan of care and expected duration. Pain level reassessed. 16:51 Pain: Pain does not radiate. Pain began 1 day ago. ll1 Vital Signs: 10:40 BP 131 / 66; Pulse 69; Resp 18; Temp 97.6; Pulse Ox 99% ; Weight 86.18 kg; Height 5 ft. ll1 7 in. ; Pain 8/10; 11:06 BP 142 / 63; Pulse 59; Resp 18; Pulse Ox 98% on R/A; ph 12:00 BP 166 / 50; Pulse 59; Resp 18; Pulse Ox 98% on R/A; ph 13:00 BP 142 / 59; Pulse 61; Resp 18; Pulse Ox 98% on R/A; ph 14:14 BP 148 / 63; Pulse 57; Resp 18; Pulse Ox 99% on R/A; ph 16:50 BP 148 / 62; Pulse 59; Resp 17; ll1 10:40 Body Mass Index 29.76 (86.18 kg, 170.18 cm) ll1 10:40 Pain Scale: Adult ll1 Vitals: 11:06 Cardiac Rhythm Assessment Sinus dashawn. ph ED Course: 10:33 Patient arrived in ED. mr 10:34 Anahy Hodge, DOMINIQUE is PHCP. kb 10:34 Clifford Perez MD is Attending Physician. kb 10:40 Arm band placed on Patient placed in an exam room, on a stretcher. ll1 10:45 Monie Delgadillo, LYNN is Primary Nurse. ph 10:54 Triage completed. ll1 11:03 Inserted saline lock: 20 gauge in right antecubital area, using aseptic technique. ds4 Blood collected. 11:05 Patient has correct armband on for positive identification. Bed in low position. Call ph light in reach. Side rails up X2. Client placed on continuous cardiac and pulse oximetry monitoring. NIBP monitoring applied. 11:06 Patient maintains SpO2 saturation greater than 95% on room air. ph 11:37 XRAY Chest (1 view) In Process Unspecified. EDMS 12:29 CT Chest For PE Angio In Process Unspecified. EDMS 12:34 CT Abd/Pelvis - IV Contrast Only In Process Unspecified. EDMS 13:37 US Abdomen Limited In Process Unspecified. EDMS 14:19 Tiarra Ramsay MD is Hospitalizing Provider. kb 16:20 No provider procedures requiring assistance completed. Patient admitted, IV remains in ph place. 16:51 Provided Education on: n/a. ll1 Administered Medications: 15:42 Drug: Piperacillin-Tazobactam IVPB 3.375 grams IVPB once over 60 mins; (mix in NS 100 ph mL) Route: IVPB; Infused Over: 60 mins; Site: right antecubital; 16:35 Follow up: Response: No adverse reaction; IV Status: Completed infusion; IV Intake: ll1 100ml Medication: 11:05 VIS not applicable for this client. ph Intake: 16:35 IV: 100ml; Total: 100ml. ll1 Outcome: 14:19 Decision to Hospitalize by Provider. kb 16:50 Admitted to Med/surg accompanied by tech, via wheelchair, room 221, with chart, Report ll1 called to LYNN Winters 16:50 Condition: stable 16:50 Instructed on the need for admit, 17:13 Patient left the ED. Signatures: Dispatcher [employer] EDMS Anahy Hodge, [employer]-Saundra Knowles, Reg Reg Subhash Loovan ds4 Monie Delgadillo RN RN ph Jatinder Kirby RN RN ll1 Corrections: (The following items were deleted from the chart) 10:54 10:51 Chief complaint: ll1 ll1
--- NOTE | 2023-07-20 14:21 | EDPHYS ---
Physician Documentation [facility] Name: Justino Cody Age: 77 yrs Sex: Male : 1945 Arrival Date: 07/20/2023 Time: 10: Bed 18 Private MD: ED Physician Clifford Perez HPI: 07/20 14:20 This 77 yrs old Male presents to ER via Ambulatory with complaints of Chest Wall Pain, kb Rib pain. 14:20 The patient or guardian reports chest pain that is located primarily in the anterior kb chest wall, right. Onset: last night. The pain does not radiate. Associated signs and symptoms: The patient has no apparent associated signs or symptoms. The chest pain is described as aching. Duration: The patient or guardian reports a single episode, that is still ongoing. Modifying factors: The symptoms are alleviated by nothing. the symptoms are aggravated by nothing. Severity of pain: At its worst the pain was moderate in the emergency department the pain is unchanged. The patient has not experienced similar symptoms in the past. The patient has not recently seen a physician. Pt reports right lower chest pain that started last night. States he fell on 07/11 and believes the pain could be from that because he fell onto left side. Denies shortness of breath. Historical: - Allergies: 10:40 Gluten Protein; ll1 - PMHx: 10:40 Hypercholesterolemia; Hypertensive disorder; ll1 - PSHx: 10:40 Double Bypass; ll1 - Immunization history:: Adult Immunizations up to date. - Social history:: Smoking status: Patient denies any tobacco usage or history of. ROS: 11:03 Constitutional: Negative for fever, chills, and weight loss, kb 11:03 Cardiovascular: Positive for chest pain, 11:03 All other systems are negative, Exam: 11:03 Constitutional: This is a well developed, well nourished patient who is awake, alert, kb and in no acute distress. Head/Face: Normocephalic, atraumatic. ENT: Moist Mucous membranes Cardiovascular: Regular rate Respiratory: Respirations even and unlabored. No increased work of breathing. Talking in full sentences Abdomen/GI: Soft, non-tender. No distention Skin: Warm, dry with normal turgor. Normal color. MS/ Extremity: Pulses equal, no cyanosis. Neurovascular intact. Full, normal range of motion. Neuro: Awake and alert, GCS 15, oriented to person, place, time, and situation. Moves all extremities. Normal gait. 11:03 ECG was reviewed by the Attending Physician. Vital Signs: 10:40 BP 131 / 66; Pulse 69; Resp 18; Temp 97.6; Pulse Ox 99% ; Weight 86.18 kg; Height 5 ft. ll1 7 in. ; Pain 8/10; 11:06 BP 142 / 63; Pulse 59; Resp 18; Pulse Ox 98% on R/A; ph 12:00 BP 166 / 50; Pulse 59; Resp 18; Pulse Ox 98% on R/A; ph 13:00 BP 142 / 59; Pulse 61; Resp 18; Pulse Ox 98% on R/A; ph 14:14 BP 148 / 63; Pulse 57; Resp 18; Pulse Ox 99% on R/A; ph 16:50 BP 148 / 62; Pulse 59; Resp 17; ll1 10:40 Body Mass Index 29.76 (86.18 kg, 170.18 cm) ll1 10:40 Pain Scale: Adult ll1 MDM: 10:34 Patient medically screened. kb 14:17 Data reviewed: vital signs, nurses notes. Consideration of Admission/Observation kb Patient was admitted/placed on observation. Escalation of care including admission/observation considered. Management of patient was discussed with the following: Billing Control Clerk: Dr Aguero. Fara MRCP in the morning and zosyn started now. 14:21 Differential diagnosis: acute myocardial infarction, coronary artery disease chest wall kb pain, cholecystitis, Cholelithiasis. Management of patient was discussed with the following: Hospitalist: Hospitalist team, pt accepted for admission under Dr Ramsay. Counseling: I had a detailed discussion with the patient and/or guardian regarding the historical points, exam findings, and any diagnostic results supporting the discharge/admit diagnosis, lab results, radiology results, the need for further work-up and treatment in the hospital. 07/20 10:38 Order name: Basic Metabolic Panel; Complete Time: 11:28 kb 07/20 10:38 Order name: CBC with Diff; Complete Time: 11:28 kb 07/20 10:38 Order name: LFT's; Complete Time: 11:28 kb 07/20 10:38 Order name: Troponin HS; Complete Time: 11:28 kb 07/20 13:50 Order name: Lipase; Complete Time: 14:44 kb 07/20 15:06 Order name: Urinalysis w/ reflexes EDMS 07/20 15:06 Order name: Basic Metabolic Panel EDMS 07/20 15:06 Order name: Basic Metabolic Panel EDMS 07/20 15:06 Order name: Basic Metabolic Panel EDMS 07/20 15:06 Order name: Basic Metabolic Panel EDMS 07/20 15:06 Order name: Basic Metabolic Panel EDMS 07/20 15:06 Order name: Basic Metabolic Panel EDMS 07/20 15:06 Order name: CBC with Automated Diff EDMS 07/20 15:06 Order name: CBC with Automated Diff EDMS 07/20 15:06 Order name: CBC with Automated Diff EDMS 07/20 15:06 Order name: CBC with Automated Diff EDMS 07/20 15:06 Order name: CBC with Automated Diff EDMS 07/20 15:06 Order name: CBC with Automated Diff EDMS 07/20 15:06 Order name: Lipid Profile EDMS 07/20 15:06 Order name: Lipid Profile EDMS 07/20 15:06 Order name: Magnesium EDMS 07/20 15:07 Order name: Magnesium EDMS 07/20 15:07 Order name: Magnesium EDMS 07/20 15:07 Order name: Magnesium EDMS 07/20 15:07 Order name: Magnesium EDMS 07/20 15:07 Order name: Magnesium EDMS 07/20 15:07 Order name: Phosphorus EDMS 07/20 15:07 Order name: Phosphorus EDMS 07/20 15:07 Order name: Phosphorus EDMS 07/20 15:07 Order name: Phosphorus EDMS 07/20 15:07 Order name: Phosphorus EDMS 07/20 15:07 Order name: Phosphorus EDMS 07/20 10:38 Order name: XRAY Chest (1 view); Complete Time: 11:44 kb 07/20 12:08 Order name: CT Chest For PE Angio; Complete Time: 12:40 kb 07/20 12:22 Order name: CT Abd/Pelvis - IV Contrast Only; Complete Time: 13:06 kb 07/20 12:45 Order name: US Abdomen Limited; Complete Time: 14:01 kb 07/20 10:38 Order name: EKG; Complete Time: 10:38 kb 07/20 15:06 Order name: CONS Physician Consult EDMS 07/20 10:38 Order name: Cardiac monitoring; Complete Time: 11:03 kb 07/20 10:38 Order name: EKG - Nurse/Tech; Complete Time: 11:03 kb 07/20 10:38 Order name: IV Saline Lock; Complete Time: 11:03 kb 07/20 10:38 Order name: Labs collected and sent; Complete Time: 11:03 kb 07/20 10:38 Order name: O2 Per Protocol; Complete Time: 11: kb 07/20 10:38 Order name: O2 Sat Monitoring; Complete Time: 11: kb EC: Rate is 60 beats/min. Rhythm is regular. QRS [place] is Normal. [place] interval is normal at kb 170 msec. QRS interval is normal at 106 msec. QT interval is normal at 446 msec. Administered Medications: 15:42 Drug: Piperacillin-Tazobactam IVPB 3.375 grams IVPB once over 60 mins; (mix in NS 100 ph mL) Route: IVPB; Infused Over: 60 mins; Site: right antecubital; 16:35 Follow up: Response: No adverse reaction; IV Status: Completed infusion; IV Intake: ll1 100ml Disposition: 18:08 Co-signature as Attending Physician, Clifford Perez MD I reviewed the patient's care rn provided by the Advanced Practice Provider and agree with the diagnosis and treatment plan. Disposition Summary: 07/20/23 14:19 Hospitalization Ordered Notes: Hospitalization Status: Observation Provider: Tiarra Ramsay [facility] kb Condition: Stable kb Problem: new kb Symptoms: are unchanged kb Bed/Room Type: [facility] Room Assignment: 221(07/20/23 16:19) dw Diagnosis - Other cholelithiasis without obstruction kb - Acute cholecystitis kb Forms: - Medication Reconciliation Form kb - SBAR form kb - Leadership Thank You Letter kb Signatures: Dispatcher [employer] Anahy Leal, DOMINIQUE RADERP-Carrie Acosta RN Clifford Cartagena MD MD rn Hall, Patricia, RN RN ph Lewis, Lynsay, RN RN ll1 Corrections: (The following items were deleted from the chart) 16:19 14:19 kb dw
--- NOTE | 2023-07-20 14:40 | P.HP ---
Certification for Inpatient With expected LOS: >2 Midnights Patient will require the following post-hospital care: None Practitioner: I am a practitioner with admitting privileges, knowledge of patient current condition, hospital course, and medical plan of care. Services: Services provided to patient in accordance with Admission requirements found in Title 42 Section 412.3 of the Code of Federal Regulations Patient History Date of Service: 07/20/23 Reason for admission: cholecystitis History of Present Illness: Justino Cody is a 77-year-old male with past medical history of HLD, hypertension, and 2 vessel bypass eight years ago, who presents to the ED with complaints of RUQ pain. Justino reports eating a hot dog for lunch yesterday and last night experiencing extreme abdominal pain mostly to the epigastric and RUQ. He states his abdomen felt tight and uncomfortable that he couldn't sleep all night, he sat in his recliner which helped ease the pain. Initial vitals blood pressure 131/66, heart rate 69, respirations 18, temperature 97.6, pulse ox 99% on room air. Significant labs WBC 12.2, T. bili 1.3, direct bili 0.3, indirect bili 1.1, lipase 26. CT abdomen pelvis with contrast shows "cholelithiasis with borderline gallbladder wall thickening" US abdomen "The gallbladder demonstrates shadowing gallstones Borderline gallbladder wall thickening measuring 3 mm. No pericholecystic fluid. The common bile duct is within normal limits measuring 6 mm" CT chest angio "negative for pulmonary embolus, positive for ascending thoracic aortic aneurysm measuring 4.1 cm." Justino will be admitted to hospitalist service for further evaluation and treatment. Allergies No Known Allergies Allergy (Unverified 03/13/22 22:24) Home Medications: Amlodipine Besylate 1 tab PO BEDTIME 03/14/22 Ascorbic Acid [Vitamin C] 1 tab PO DAILY 03/14/22 Aspirin 1 tab PO DAILY 03/14/22 Atorvastatin Calcium [Lipitor] 0.5 tab PO BEDTIME 03/14/22 Calcium Carbonate [Calcium] 1 tab PO BEDTIME 03/14/22 Cholecalciferol (Vitamin D3) [Vitamin D3] 1 cap PO DAILY 03/14/22 Cyanocobalamin (Vitamin B-12) [Vitamin B-12] 1 cap PO BEDTIME 03/14/22 Furosemide [Lasix] 20 mg PO DAILY #30 tablet 03/14/22 Latanoprost/Pf [Latanoprost 0.005% Eye Drop] 1 drop EACH EYE BEDTIME 03/14/22 Magnesium Oxide [Magnesium] 1 tab PO DAILY 03/14/22 Multivit-Min/Folic/Vit K/Lycop [Men's Multivitamin Tablet] 1 tab PO BEDTIME 03/14/22 [place]-3 Fatty Acids [[place]-3] 1 cap PO BEDTIME 03/14/22 Omeprazole 1 tab PO BEDTIME 03/14/22 Potassium Chloride [K-Dur] 10 meq PO DAILY #30 tab.er.prt 03/14/22 Zinc 1 tab PO DAILY 03/14/22 - Past Medical/Surgical History Diabetic: No -: Hypertension -: Hyperlipidemia -: Double Bypass Psychosocial/ Personal History: Patient lives at home with his . - Family History Mother -: Diabetes Father -: Heart disease - Social History Alcohol use: No CD- Drugs: No Caffeine use: Yes Review of Systems General: Fever, Chills, Weakness, Malaise Eyes: Unremarkable ENT: Unremarkable Respiratory: Shortness of Breath Cardiovascular: Chest Pain Gastrointestinal: Nausea, Vomiting, Abdominal Pain, Distention Genitourinary: Unremarkable Musculoskeletal: Unremarkable Integumentary: Unremarkable Neurological: Unremarkable Physical Examination - Physical Exam General: Alert, In no apparent distress, Oriented x3 HEENT: Atraumatic, Normocephalic, PERRLA Neck: Supple, 2+ carotid pulse no bruit, JVD not distended Respiratory: Clear to auscultation bilaterally, Normal air movement Cardiovascular: No edema, Normal pulses, Regular rate/rhythm, Normal S1 S2 Capillary refill: <2 Seconds Gastrointestinal: Normal bowel sounds, Soft and benign, Distended Musculoskeletal: No clubbing, No swelling, No contractures Neurological: Normal gait, Normal speech, Normal strength at 5/5 x4 extr - Studies Laboratory Data (last 24 hrs) 07/20/23 07/20/23 07/20/23 10:50 10:50 10:50 WBC 12.20 H Hgb 14.5 Hct 42.6 Plt Count 153 Sodium 141 Potassium 3.5 BUN 17 Creatinine 1.05 Glucose 111 H Total Bilirubin 1.3 H AST 22 ALT 36 Alkaline Phosphatase 85 Lipase 26 Assessment and Plan - Plan Assessment and Plan Acute cholecystitis Leukocytosis likely inflammatory or infection -WBC 12.2 -continue Zosyn, given in the ED -Dr. Aguero consulted -MRCP in the AM- NPO at midnight -pain management Aortic aneurysm 4.1 cm -follow up outpatient with additional CT chest h/o HTN and HLD -continue home medications when available DNR DVT ppx: lovenox LOS 2-3 days Discharge Plan: Home Plan to discharge in: 72 Hours - Advance Directives Does patient have a Living Will: Yes Does patient have a Durable POA for Healthcare: Yes Time Spent Managing Pts Care (In Minutes): 55
[2023-07-20] MEDS ORDERED: ONDANSETRON 4 MG/2 ML VIAL IV PRN (14:58)
[2023-07-20] MEDS ORDERED: MORPHINE 2 MG/ML SYR IV PRN (15:32)
[2023-07-20] MEDS: ENOXAPARIN 40 MG/0.4 ML SQ SCH (17:35)
[2023-07-20] MEDS: NA CHLORIDE 0.9% 1,000 ML IV SCH (17:35)
[2023-07-20 17:57] VITALS: BMI 29.7
[2023-07-21] MEDS: PIPER TAZO 3.375 GM in NA CHLORIDE 0.9% 100 ML IV SCH ×3 (02:45→19:37)
[2023-07-21 03:18] LABS: Absolute Lymphocytes (CBC) 1.4 K/uL (0.7-4.9); Hematocrit 38.3 % (39.6-49.0); Lymphocytes % 17.6 % (15.3-44.8); MPV 8.2 fL (7.6-11.3); Platelets 136 thou/uL (152-406)
[2023-07-21 03:49] LABS: Phosphorus 2.7 mg/dL (2.5-4.9); Potassium 4.2 mEq/L (3.5-5.1)
[2023-07-21] MEDS: NA CHLORIDE 0.9% 1,000 ML IV SCH ×2 (05:20→17:51)
--- NOTE | 2023-07-21 09:47 | RAD REPORT ---
EXAM DESCRIPTION: MRI - Cholangiogram - 07/21/2023 9:29 am CLINICAL HISTORY: cholecystitis Abdominal pain COMPARISON: Abdomen Exam Limited dated 07/20/2023; Chest For Pe Angio dated 07/20/2023; Abdomen Pelv is W Contrast dated 07/20/2023 FINDINGS: Three-dimensional MRCP was performed using maximum intensity projection reconstruction on the same work station. No intrahepatic biliary tree dilatation is seen. The common bile duct is normal caliber without evide nce of retained stone, stricture or mass. The pancreatic duct is not pathologically dilated. Gallbladder contains stones and demonstrates distention and wall thickening. Mild fluid is seen surro unding the gallbladder neck. Limited T2 sequences through the abdomen demonstrates no bulky adenopathy, significant free fluid or abscess. IMPRESSION: No common bile duct stone or biliary tree dilatation. Findings suspicious for acute cholecystitis are present.
[2023-07-21] MEDS: ENOXAPARIN 40 MG/0.4 ML SQ SCH (10:10)
--- NOTE | 2023-07-21 10:53 | P.PN ---
Subjective Date of Service: 07/21/23 Chief Complaint: cholecystitis Subjective: No new changes, Doing well HPI 07/20: Justino Cody is a 77-year-old male with past medical history of HLD, hypertension, and 2 vessel bypass eight years ago, who presents to the ED with complaints of RUQ pain. Justino reports eating a hot dog for lunch yesterday and last night experiencing extreme abdominal pain mostly to the epigastric and RUQ. He states his abdomen felt tight and uncomfortable that he couldn't sleep all night, he sat in his recliner which helped ease the pain. Initial vitals blood pressure 131/66, heart rate 69, respirations 18, temperature 97.6, pulse ox 99% on room air. Significant labs WBC 12.2, T. bili 1.3, direct bili 0.3, indirect bili 1.1, lipase 26. CT abdomen pelvis with contrast shows "cholelithiasis with borderline gallbladder wall thickening" US abdomen "The gallbladder demonstrates shadowing gallstones Borderline gallbladder wall thickening measuring 3 mm. No pericholecystic fluid. The common bile duct is within normal limits measuring 6 mm" CT chest angio "negative for pulmonary embolus, positive for ascending thoracic aortic aneurysm measuring 4.1 cm." Justino will be admitted to hospitalist service for further evaluation and treatment. 07/21: Escobar went for the MRCP this AM. Will plan for surgery tomorrow, will need cardiac clearance prior. He contiues to c/o RUQ pain, and denies fever, chills, CP, SOB, and FISHER. Currently he is on RA and ambulating independently in his room. Review of Systems 10-point ROS is otherwise unremarkable Physical Examination - Vital Signs Temperature: 97.8 F Blood Pressure: 155/78 Pulse: 63 Respirations: 17 Pulse Ox (%): 99 - Studies Laboratory Data (last 24 hrs) 07/20/23 07/20/23 07/20/23 10:50 10:50 10:50 WBC 12.20 H Hgb 14.5 Hct 42.6 Plt Count 153 Sodium 141 Potassium 3.5 BUN 17 Creatinine 1.05 Glucose 111 H Total Bilirubin 1.3 H AST 22 ALT 36 Alkaline Phosphatase 85 Lipase 26 Assessment And Plan - Plan Physical Exam General: Alert, In no apparent distress, Oriented x3 HEENT: Atraumatic, Normocephalic, PERRLA Neck: Supple, 2+ carotid pulse no bruit, JVD not distended Respiratory: Clear to auscultation bilaterally, Normal air movement Cardiovascular: No edema, Normal pulses, Regular rate/rhythm, Normal S1 S2 Capillary refill: <2 Seconds Gastrointestinal: Normal bowel sounds, Soft and benign, Distended, tender to RUQ Musculoskeletal: No clubbing, No swelling, No contractures Neurological: Normal gait, Normal speech, Normal strength at 5/5 x4 extr Assessment and Plan Acute cholecystitis Leukocytosis likely inflammatory or infection -WBC 12.2 -continue Zosyn, given in the ED -Dr. Aguero consulted -MRCP -"Gallbladder contains stones and demonstrates distention and wall thickening. Mild fluid is seen surrounding the gallbladder neck." -pain management Aortic aneurysm 4.1 cm -follow up outpatient with additional CT chest h/o HTN and HLD -continue home medications when available DNR DVT ppx: lovenox LOS 2-3 days Discharge Plan: Home Time Spent Managing PTS Care (In Minutes): 35
--- NOTE | 2023-07-21 12:17 | EKG ---
Test Date: 2023-07-20 Test Time: 11:00:16 Objective C Developer: ÁNGELA MEASUREMENT RESULTS: Intervals: Rate: 60 OR: 170 QRSD: 106 QT: 446 QTc: 446 [place]: P: 61 OR: 170 QRS: -4 T: 27 INTERPRETIVE STATEMENTS: Normal sinus rhythm Normal ECG Compared to ECG 03/13/2022 16:59:36 Sinus bradycardia no longer present Electronically Signed On 07-21-23 12:14:56 CDT by Jose F Downing
[2023-07-21] MEDS ORDERED: MIDAZOLAM HCL 2 MG/2 ML INJ ONE (15:02)
[2023-07-21] MEDS ORDERED: LIDOCAINE 1% MPF 5 ML VIAL ONE (15:02)
[2023-07-21] MEDS ORDERED: propofoL 200 MG/20 ML VIAL IV ONE (15:02)
[2023-07-21] MEDS ORDERED: ROCURONIUM 50 MG/5 ML VIAL IV ONE (15:02)
[2023-07-21] MEDS ORDERED: ONDANSETRON 4 MG/2 ML VIAL ONE (15:02)
[2023-07-21] MEDS ORDERED: FENTANYL CITR 100 MCG/2 ML ONE (15:02)
[2023-07-21] MEDS ORDERED: NA CHLORIDE 0.9% 1,000 ML ONE (16:34)
[2023-07-21] MEDS ORDERED: HYDROCODONE/APAP 5/325 MG TAB PO PRN (16:36)
[2023-07-21] MEDS ORDERED: NEOSTIGMINE 1 MG/ML -10 ML VIAL ONE (16:37)
[2023-07-21] MEDS ORDERED: GLYCOPYRROLATE 0.2 MG/ML SYR ONE (16:38)
--- NOTE | 2023-07-21 16:38 | P.BOP ---
Preoperative diagnosis: acute cholecystitis, symptomatic cholelithiasis Postoperative diagnosis: same Primary procedure: Laparoscopic cholecystectomy Estimated blood loss: <10cc Specimen: gb Findings: acute cholecystitis, GB wall edema Anesthesia: General Complications: None Drain(s): REGINE drain Transferred to: Recovery Room Condition: Good
--- NOTE | 2023-07-21 19:06 | CON ---
Date of Consultation: 07/21/2023 Diagnoses: Acute cholecystitis, epigastric with right upper quadrant pain. History Of Present Illness: This is a case of a 77-year-old patient, who came to the ER last night, complaining of nausea, vomiting, and epigastric pain after eating some hot dogs. The pain did not im prove, and he was admitted to the hospital with acute cholecystitis on multiple imaging. LFTs were s lightly elevated, so he had an MRCP this morning. He denies any dysuria, hematuria, hematochezia, [place]. Denies any traveling out of the country. Denies any family member sick at home. Past Medical History: Hypertension, hyperlipidemia, cardiac disease. Past Surgical History: Double bypass in the heart. Social History: He does not smoke. He does drink alcohol. Medications: Reviewed including vitamin B12, Lasix, magnesium, omega-3, multivitamins, K-Dur, and zi nc. Physical Examination: General: The patient is awake and alert. HEENT: Pupils are equal and reactive. Anicteric. Neck: Supple. Chest: Clear. Heart: S1, S2. Abdomen: Soft and depressible. Epigastric with right upper quadrant pain with Acevedo sign positive and guarding in right upper quadrant. Rectal: Deferred. Extremities: Good capillary refill. Laboratory Data: Blood work shows a WBC count of 12, hemoglobin of 14, total bilirubin of 1.3 and di rect bilirubin of 0.3, alkaline phosphatase of 85. Imaging: CAT scan of the chest, thorax, abdomen, and pelvis reviewed with the patient and also inclu de cholelithiasis with gallbladder wall edema consistent with cholecystitis and the same findings on the ultrasound. MRCP done this morning shows no evidence of a stone in the common bile duct. Assessment: This is the case of a 77-year-old patient with acute cholecystitis, symptomatic cholelit hiasis, still has Acevedo sign, and right upper quadrant tenderness. We offered laparoscopic possible open cholecystectomy with benefits, alternatives, and risks including, but not limited to, infection , bleeding, damage to adjacent structures, anesthesia complication, choledocholithiasis, bile leak, p ancreatitis, myocardial infarction, and even . He also understands this may not relieve any sym ptoms. He might need more than one surgical intervention. We discussed the case with the primary do ctor since he has history of heart disease. His functional architect recently . He is in the process of getting a new functional architect, so if he is okay from a medical standpoint, then we will take him to surgery. The patient understood. AGNIESZKA/JOHN Voice ID: [id number] Report ID: [id number]
--- NOTE | 2023-07-21 20:15 | CON ---
Date of Consultation: 07/21/2023 Reason For Consultation: Preop assessment before cholecystectomy surgery. History Of Present Illness: 77-year-old male with history of coronary artery disease status post 2 v essel bypass surgery, had a stress test in my office within the past year was negative. He is active . No chest pain. He can do more than 4 METS without any symptoms. He has hypertension and dyslipid emia as well. He is completely chest pain free. Past Medical History: Coronary artery disease, hypertension, dyslipidemia. Past Surgical History: CABG. Medications: Refer reconciliation sheet for detailed list. Allergies: NO KNOWN DRUG ALLERGIES. Family History: No premature coronary artery disease or cancer. Social History: He does not smoke or drink. Does not use any drugs. Review of Systems: All systems reviewed were negative except above mentioned in HPI. Physical Examination: Vital Signs: Reviewed. Head and Neck: Pupils are equal, reactive to light. Intact eye movements. No JVD. No cervical lym phadenopathy. Neck: Supple. Thyroid is not enlarged. Lungs: Clear to auscultation bilaterally. No rhonchi, rales, or crackles. No accessory muscle use. Heart: Regular rate and rhythm. No extra sounds. Abdomen: Soft, nontender. Bowel sounds positive. No organomegaly. No masses or hernia. No rigidi ty or rebound. Extremities: No edema, clubbing, cyanosis. Intact pulses. Skin: No rashes. Neurologic: Alert, awake, oriented x3. No acute focal deficits appreciated. Investigations: Troponins negative. BUN 19, creatinine 1.0, LDL cholesterol is 40, hemoglobin 13.1. Assessment/recommendation: 1.Cardiac preoperative risk assessment as patient has history of coronary artery disease, but he is well vascularized through CABG many years back and stress test within the past year is negative. He can do more than 4 METS without any symptoms and has no active chest pain and this surgery is rather urgent to proceed without any further workup. 2.Hypertension. Blood pressure is controlled. 3.Dyslipidemia. Recommend Lipitor 40 mg q.h.s. 4.Aortic aneurysm measures 4.1 cm. We will plan for outpatient followup on this matter. /JOHN Voice ID: [id number] Report ID: [id number]
[2023-07-22] MEDS: NA CHLORIDE 0.9% 1,000 ML IV SCH (03:02)
--- NOTE | 2023-07-22 03:12 | OP ---
Date of Procedure: 07/21/2023 Surgeon: René Aguero MD Preoperative Diagnoses: Acute cholecystitis, symptomatic cholelithiasis. Postoperative Diagnoses: Acute cholecystitis, symptomatic cholelithiasis. Procedure: Laparoscopic cholecystectomy. Estimated Blood Loss: Less than 10 cc. Findings: Acute cholecystitis, gallbladder wall edema. Anesthesia: General plus local. Drains: REGINE #10. Indications: This is the case of a male who came to us with acute abdominal pain with Acevedo's sign positive, diagnosed with acute cholecystitis, symptomatic cholelithiasis. Benefits, alternatives, an d risks of laparoscopic possible open cholecystectomy fully explained, which include, but not limited to infection, bleeding, damage to adjacent structures, anesthesia complication, choledocholithiasis, bile leak, pancreatitis, LA, and . He also understands this may not relieve the symptoms. He might need more than one surgical intervention. He understood. He signed consent. Patient brought to the operating room and placed in supine position. Anesthesia was done without complication. Abdo su area was prepped and draped in sterile fashion. Marcaine 0.5% was injected for local anestheti c followed by sharp incision of skin in the infraumbilical region. Incision was carried down to fasc ia, which was opened under direct vision. Peritoneum was encountered, opened under direct vision. V icryl #1 placed inside the fascia. Rekha trocar was carefully introduced and was obtaine d. I placed 3 more trocars, 5 mm each one of them in epigastric and right upper quadrant area under direct visualization. This allowed me to visualize the area of the gallbladder that looked like it h as many adhesions of the fatty tissue to the gallbladder and the liver. They were friable. They nee d to be addressed, but we LigaSure once the trocars were placed in that area. Once we rem stephanie that, the gallbladder was so distended that we could not even hold it with a grasper, so we deco mpressed the gallbladder partially under direct visualization by introducing an Endo needle and then aspirated the gallbladder. This was done under direct visualization. Needle was removed under direc t visualization. The fundus of the gallbladder was grasped with a grasper. The same with the infund ibulum and the gallbladder was retracted in the inferolateral fashion exposing the triangle of Calot and obtaining critical view. The cystic duct and cystic artery were clearly isolated, freed circumfe rentially and connection between those and the gallbladder was clearly identified. I proceeded to li gate those by using at least 3 clips proximal, 1 clip distal, ligation in middle. Same was done with the cystic artery. No bile leak. No bleeding. The gallbladder was removed from liver using Bovie cauterizer and removed from abdominal cavity using EndoCatch through the umbilical incision. The are a was inspected once again. No bile leak. No bleeding. Due to all this inflammation and swelling o f that area, left a REGINE drain in that region exiting through one of the trocar sites and secured in pl hussain with 3-0 nylon. The area was inspected once again. The areas of adhesions were removed with no bleeding. Gallbladder fossa was intact. Clips were intact with no bile leak and no bleeding. At th at moment, I proceeded to remove the trocars under direct vision. Deflated pneumoperitoneum. Closed the fascia with #1 Vicryl. Irrigated subcutaneous tissue and closed that with 3-0 chromic and the s kin with stapled. Sponge count and instrument count correct. Patient tolerated the procedure well. Patient on his way to Recovery in stable condition. AGNIESZKA/JOHN Voice ID: [id number] Report ID: [id number]
[2023-07-22 03:38] LABS: Hematocrit 36.4 % (39.6-49.0); Lymphocytes % 13.9 % (15.3-44.8); MCV 87.2 fL (80-100); MPV 8.4 fL (7.6-11.3); Platelets 129 thou/uL (152-406); RBC Red Blood Cell Count 4.17 M/uL (4.33-5.43)
[2023-07-22 03:39] LABS: Absolute Lymphocytes (CBC) 1.1 K/uL (0.7-4.9)
[2023-07-22 03:59] LABS: Phosphorus 3.8 mg/dL (2.5-4.9); Potassium 3.7 mEq/L (3.5-5.1)
[2023-07-22] MEDS ORDERED: POTASSIUM CL SA 10 MEQ TAB PO ONE (08:00)
[2023-07-22 10:53] VITALS: BP 155/66; TEMP 97.5
--- NOTE | 2023-07-22 10:58 | P.PN ---
Subjective Date of Service: 07/22/23 Chief Complaint: cholecystitis Subjective: Tolerating diet, Ambulating, Improving Review of Systems General: Fever (no) Respiratory: Cough (no), Shortness of Breath (no) Cardiovascular: Chest Pain (no) Gastrointestinal: Nausea (no), Vomiting (no), No Distention Physical Examination - Vital Signs Temperature: 97.5 F Blood Pressure: 155/66 Pulse: 63 Respirations: 18 Pulse Ox (%): 97 - Physical Exam General: Alert, In no apparent distress, Oriented x3, Cooperative HEENT: PERRLA Neck: Supple Respiratory: Normal air movement Cardiovascular: No edema, Normal pulses Gastrointestinal: Soft and benign, Other (REGINE serosanguineous) Musculoskeletal: No erythema, No tenderness, No warmth Integumentary: No rashes, No breakdown Assessment And Plan - Plan Ok to D/H from surgical standpoint with PO abx REGINE care explained f/u my office this friday to remove REGINE drain
[2023-07-22] MEDS: PIPER TAZO 3.375 GM in NA CHLORIDE 0.9% 100 ML IV SCH (11:17)
--- NOTE | 2023-07-22 12:15 | P.DS ---
Admission Date: 07/20/23 Discharge Date: 07/22/23 Disposition: ROUTINE DISCHARGE Discharge Condition: GOOD Reason for Admission: cholecystitis Consultations: Cardiology - Dr. Downing General Surgery - Dr. Aguero Brief History of Present Illness: 77yo M, PMH: HLD, hypertension, and 2 vessel bypass eight years ago, Patient presents to the ED with complaints of RUQ pain. Justino reports eating a hot dog for lunch yesterday and last night experiencing extreme abdominal pain mostly to the epigastric and RUQ. He states his abdomen felt tight and uncomfortable that he couldn't sleep all night, he sat in his recliner which helped ease the pain. Initial vitals blood pressure 131/66, heart rate 69, respirations 18, temperature 97.6, pulse ox 99% on room air. Significant labs WBC 12.2, T. bili 1.3, direct bili 0.3, indirect bili 1.1, lipase 26. CT abdomen pelvis with contrast shows "cholelithiasis with borderline gallbladder wall thickening" US abdomen "The gallbladder demonstrates shadowing gallstones Borderline gallbladder wall thickening measuring 3 mm. No pericholecystic fluid. The common bile duct is within normal limits measuring 6 mm" CT chest angio "negative for pulmonary embolus, positive for ascending thoracic aortic aneurysm measuring 4.1 cm." Hospital Course: Problem List: Acute cholecystitis, now s/p Laparoscopic cholecystectomy (07/21) Incidental Findings: Aortic aneurysm 4.1 cm Hypertension Hyperlipidemia Patient presented with RUQ pain. Patient was found to have acute cholecystitis first seen on CT and later confirmed on MRCP. General surgery was consulted. Patient underwent successful laparoscopic cholecystectomy with Dr. Aguero on 07/21. Patient was monitored post operatively, feeling better, abdominal pain improved, was deemed stable for discharge home with REGINE drain. Incidentally seen on CTA chest: Ascending thoracic aortic aneurysm measuring 4.1 cm Recommend follow up CT in a year to monitor size. Medications: Augmentin x 7 days [place] for pain Follow up: PCP 3-[address] Aguero in 1 week REGINE drain care Physical Exam: GEN: Alert, oriented, NAD HEENT: Normal conjunctiva, sclera anicteric CV: Regular rate and rhythm, no edema Pulm: Nonlabored respirations on room air, clear bilaterally ABD: Soft, mild RUQ tenderness, REGINE drain in place, surgical dressing in place MSK: No joint tenderness Integumentary: No rashes Neuro: Normal speech, normal affect Vital Signs/Physical Exam: Temp Pulse Resp BP Pulse Ox 97.5 F 63 18 155/66 H 97 07/22/23 10:58 07/22/23 10:58 07/22/23 10:58 07/22/23 10:58 07/22/23 10:58 Laboratory Data at Discharge: WBC 8.00 thou/uL (4.3-10.9) 07/22/23 01:43 Hgb 12.4 g/dL (13.6-17.9) L 07/22/23 01:43 Hct 36.4 % (39.6-49.0) L 07/22/23 01:43 Plt Count 129 thou/uL (152-406) L 07/22/23 01:43 Sodium 141 mEq/L (136-145) 07/22/23 01:43 Potassium 3.7 mEq/L (3.5-5.1) 07/22/23 01:43 BUN 18 mg/dL (7-18) 07/22/23 01:43 Creatinine 0.99 mg/dL (0.70-1.30) 07/22/23 01:43 Glucose 83 mg/dL (74-106) 07/22/23 01:43 Phosphorus 3.8 mg/dL (2.5-4.9) 07/22/23 01:43 Magnesium 2.0 mg/dL (1.6-2.4) 07/22/23 01:43 Total Bilirubin 1.3 mg/dL (0.2-1.0) H 07/20/23 10:50 AST 22 U/L (15-37) 07/20/23 10:50 ALT 36 U/L (16-61) 07/20/23 10:50 Alkaline Phosphatase 85 U/L (45-117) 07/20/23 10:50 Triglycerides 109 mg/dL (<150) 07/21/23 02:44 Cholesterol 110 mg/dL (<200) 07/21/23 02:44 HDL Cholesterol 48 mg/dL (40-60) 07/21/23 02:44 Cholesterol/HDL Ratio 2.29 07/21/23 02:44 Lipase 26 U/L (13-75) 07/20/23 10:50 Home Medications: Amlodipine Besylate 1 tab PO BEDTIME 03/14/22 Ascorbic Acid [Vitamin C] 1 tab PO DAILY 03/14/22 Aspirin 1 tab PO DAILY 03/14/22 Atorvastatin Calcium [Lipitor] 0.5 tab PO BEDTIME 03/14/22 Calcium Carbonate [Calcium] 1 tab PO BEDTIME 03/14/22 Cholecalciferol (Vitamin D3) [Vitamin D3] 1 cap PO DAILY 03/14/22 Latanoprost/Pf [Latanoprost 0.005% Eye Drop] 1 drop EACH EYE BEDTIME 03/14/22 Magnesium Oxide [Magnesium] 1 tab PO DAILY 03/14/22 Multivit-Min/Folic/Vit K/Lycop [Men's Multivitamin Tablet] 1 tab PO BEDTIME 03/14/22 [place]-3 Fatty Acids [[place]-3] 1 cap PO BEDTIME 03/14/22 Potassium Chloride [K-Dur] 10 meq PO DAILY #30 tab.er.prt 03/14/22 Zinc 1 tab PO DAILY 03/14/22 Quercetin 1 cap PO BEDTIME 07/20/23 Amox/Clavulanate [Augmentin 875-125 Tab] 1 tab PO BID 7 Days #14 tab 07/22/23 Hydrocodone 5/APAP 325 [[place] 5/325*] 1 tab PO Q8H PRN 5 Days #15 tab 07/22/23 New Medications: Amox/Clavulanate [Augmentin 875-125 Tab] 1 tab PO BID 7 Days #14 tab Hydrocodone 5/APAP 325 [[place] 5/325*] 1 tab PO Q8H PRN 5 Days #15 tab PRN Reason: Pain Scale 5-7 (Moderate) Physician Discharge Instructions: Patient presented with RUQ pain. Patient was found to have acute cholecystitis first seen on CT and later confirmed on MRCP. General surgery was consulted. Patient underwent successful laparoscopic cholecystectomy with Dr. Aguero on 07/21. Patient was monitored post operatively, feeling better, abdominal pain improved, was deemed stable for discharge home with REGINE drain. Incidentally seen on CTA chest: Ascending thoracic aortic aneurysm measuring 4.1 cm Recommend follow up CT in a year to monitor size. Medications: Augmentin x 7 days [place] for pain Follow up: PCP 3-[address] Aguero in 1 week REGINE drain care Followup: René Aguero MD [ACTIVE - CAN ADMIT] - 07/25/23 10:00 am NONE,NONE [Primary Care Provider] - Time spent managing pt's care (in minutes): 45
[2023-07-22 15:53] VITALS: O2SAT 98
--- NOTE | 2023-07-22 15:54 | PN ---
Date of Progress Note: 07/22/2023 Subjective: Seen by bedside. Clinically doing well. Had cholecystectomy. No cardiac complications . Review of Systems: No chest pain, shortness of breath, orthopnea, or cough. No nausea, vomiting, or diarrhea. All othe r systems were reviewed, they were negative. Objective: Vital Signs: Reviewed. Head and Neck: Pupils are equal, reactive to light. Intact eye movements. No JVD. No cervical lym phadenopathy. Neck is supple. Thyroid is not enlarged. Lungs: Clear to auscultation bilaterally. No rhonchi, wheezing, or crackles. No accessory muscle u se. Heart: Regular rate and rhythm. No extra sounds. Abdomen: Soft, nontender. Bowel sounds positive. No organomegaly. No masses or hernia. No rigidi ty or rebound. Extremities: No clubbing or cyanosis. Intact pulses. Skin: No rashes. No nodule. Neurologic: Alert, awake, oriented x3. No acute focal deficits appreciated. Investigations: BUN 18, creatinine 0.99. Assessment And Recommendations: Coronary artery disease, stable. No active symptoms. Tolerated cho lecystectomy without complications. Cardiology will sign off on the case. I will be available for a ny further questions. Thank you for the consult. /JOHN Voice ID: [id number] Report ID: [id number]
[2023-07-22] MEDS ORDERED: PIPER TAZO 3.375 GM in NA CHLORIDE 0.9% 100 ML IV SCH (17:00)
== END 2023-07-22 14:55 | disposition home or self-care (01) | DRG 419 ==
LOC: ER 10:26 → ERHOLD 14:59 → 2ND 17:01
PROVIDERS: ADMIT Internal Medicine; ATTEND Hospitalist
PROC: 0FT44ZZ Resection of Gallbladder, Percutaneous Endoscopic Approach (ICD-10-PCS; principal; 2023-07-21 15:45)
DX: K80.00 Calculus of gallbladder with acute cholecystitis without obstruction (principal); I10 Essential (primary) hypertension; I71.9 Aortic aneurysm of unspecified site, without rupture; E78.00 Pure hypercholesterolemia, unspecified; I25.10 Atherosclerotic heart disease of native coronary artery without angina pectoris; Z66 Do not resuscitate; Z95.1 Presence of aortocoronary bypass graft; Z88.8 Allergy status to other drugs, medicaments and biological substances; Z79.82 Long term (current) use of aspirin; Z79.899 Other long term (current) drug therapy
CPT/HCPCS: 36415; 71045; 71275; 74177; 74181; 76705; 80048; 80061; 80076; 83690; 83735; 84100; 84484; 85025; 88304; 93005; 94010; 96365; 99285; J1650; J2001; J2250; J2270; J2405; J2543; J2704; J2710; J3010; J7030; Q9967